=== PATIENT | male | born 1985 | race Caucasian/White ===

== ENCOUNTER 2023-12-01 07:35 | Emergency (ER) | payer BC ==
[2023-12-01 07:45] VITALS: RESP 18; BMI 27.7
[2023-12-01 08:28] LABS: BASO % 0.5 % (0-2.0); EOS % 4.2 % (0-4.5); HEMATOCRIT 43.8 % (35.4-49); HEMOGLOBIN 14.4 GM/dL (11.7-16.9); LYMPH % 35.2 % (8-40); MCHC 32.9 g/dl (32.0-35.9); MEAN CELL VOLUME 88.2 fl (80-96); MEAN PLT VOLUME 9.3 fl (7.5-11.1); MONO % 9.4 % (3.8-10.2); NEUT % 50.7 % (42.8-82.8); PLATELET COUNT 315 10^3/uL (134-434); RBC 4.97 M/mm3 (4.00-5.60); RDW 12.6 % (11.9-15.9); WHITE BLOOD COUNT 9.5 K/mm3 (4.0-10.0)
[2023-12-01 08:33] LABS: INR 1.04 (0.83-1.09); PROTHROMBIN TIME (PATIENT) 11.7 SEC (9.7-13.0)
[2023-12-01 08:35] LABS: ACTIVATED PTT 35.9 SECONDS (25.2-36.5)
[2023-12-01 08:46] LABS: POTASSIUM 4.3 mmol/L (3.5-5.1)
[2023-12-01 08:48] LABS: CALCIUM 9.5 mg/dL (8.5-10.1)
[2023-12-01 08:49] LABS: ALBUMIN 4.1 g/dl (3.4-5.0); BLOOD UREA NITROGEN 14.7 mg/dL (7-18); MAGNESIUM 2.2 mg/dL (1.8-2.4)
[2023-12-01 08:53] LABS: TOT PROT 7.3 g/dl (6.4-8.2)
[2023-12-01 08:54] LABS: BILIRUBIN,TOTAL 0.8 mg/dL (0.2-1)
[2023-12-01 09:43] VITALS: BP 130/67; PULSE 60; TEMP 97.7
== END 2023-12-01 09:59 | disposition home or self-care (01) ==
LOC: JER 07:35
DX: R07.2 Precordial pain (principal); R05.9 Cough, unspecified; Z20.822 Contact with and (suspected) exposure to COVID-19
CPT/HCPCS: 0241U-QW; 36415; 71045-TC-FY; 80053; 83735; 84484; 85025; 85610; 85730; 93005; 93010; 99285-25